=== PATIENT | male | born 2000 ===

== ENCOUNTER 2022-04-03 21:27 | Emergency (ER) | payer SELFPAY ==
[2022-04-03] MEDS ORDERED: Ibuprofen 200 MG TAB ONE (23:29)
[2022-04-03] MEDS ORDERED: Acetaminophen 500 MG TAB ONE (23:29)
[2022-04-03] MEDS ORDERED: hydrOXYzine 25 MG TAB ONE (23:30)
[2022-04-04 00:52] LABS: SARS-CoV-2 NAA Rapid Test DETECTED (NotDetected)
== END 2022-04-04 01:08 | disposition home or self-care (01) ==
LOC: CSHERS 21:27
DX: U07.1 COVID-19 (principal); F41.9 Anxiety disorder, unspecified; F17.290 Nicotine dependence, other tobacco product, uncomplicated
CPT/HCPCS: 99283